=== PATIENT | female | born 1970 | race Caucasian/White ===

== ENCOUNTER 2019-04-10 07:58 | Day surgery (SDC) | payer BC ==
[~2019-04-10] VITALS: Ht 162.6 cm; Wt 90.6 kg
[~2019-04-10 07:58] MED LIST: ADDERALL10 MG PO; INDERAL LA 80MG80 MG PO; PRILOSEC 20MG20 MG PO; SYNTHROID0.075 MG/T PO; ZYRTEC 10MG10 MG PO
[2019-04-10] MEDS ORDERED: PRILOTC PO (08:38)
[2019-04-10] MEDS ORDERED: INDERAL80 MG PO (08:38)
[2019-04-10] MEDS ORDERED: VITAMIN D31000 I1 PO (08:38)
[2019-04-10] MEDS ORDERED: LEVOXYL0.075 MG PO (08:38)
[2019-04-10] MEDS ORDERED: STRATTERA 40MG40 MG PO (08:39)
[2019-04-10 08:50] VITALS: BP 127/87; PULSE 61; TEMP 98
[2019-04-10 10:05] VITALS: BP 115/72; PULSE 72; TEMP 98.5
--- NOTE | 2019-04-10 10:05 | NUR ---
TO [facility] PER CART FROM ENDOSCOPY. ALERT ORIENTED X3, AMBULATED TO RECLINER WITH ASSIST AND TOLERATED WELL. RECEIVED APPLE SAUCE AND COFFEE. DENIES PAIN OR DISCOMFORT
[2019-04-10 10:10] VITALS: TEMP 98.1
--- NOTE | 2019-04-10 10:10 | NUR ---
DR DAVID INTO TALK WITH PATIENT AND HER .
[2019-04-10 10:20] VITALS: BP 104/67; PULSE 77
--- NOTE | 2019-04-10 10:20 | NUR ---
ATE 100% AND TOLERATED WELL.
--- NOTE | 2019-04-10 10:36 | NUR ---
RECEIVED DISCHARGE INSTRUCTIONS AND VERBALIZED UNDERSTANDING. DISCONTINUED IV AND INT- CATHETER INTACT PATIENT GETTING DRESSED AND GETTING THE CAR.
--- NOTE | 2019-04-10 10:45 | NUR ---
DISCHARGED PER WC BY NURSING STAFF TO PRIVATE CAR IN CARE OF -
== END 2019-04-10 10:55 | disposition home or self-care (01) ==
LOC: SDCO 07:58
DX: Z12.11 Encounter for screening for malignant neoplasm of colon (principal); D64.9 Anemia, unspecified; Z88.5 Allergy status to narcotic agent; Z90.710 Acquired absence of both cervix and uterus
CPT/HCPCS: J2250; J2704; J3010; J7030

== ENCOUNTER 2021-08-04 10:43 | Day surgery (SDC) | payer BC ==
[~2021-08-04] VITALS: Ht 162.6 cm; Wt 84.5 kg
[~2021-08-04 10:43] MED LIST changes: +INDERAL80 MG PO; +LEVOXYL0.075 MG PO; +PRILOTC PO; +STRATTERA 40MG40 MG PO; +VITAMIN D31000 I1 PO
[2021-08-04 11:55] VITALS: BP 136/73; PULSE 90; TEMP 97.9
[2021-08-04] MEDS ORDERED: ULTRAM 50MG TAB50 MG PO (12:57)
[2021-08-04 14:40] VITALS: BP 132/66; PULSE 73; TEMP 97.9
[2021-08-04 14:55] VITALS: BP 117/65; PULSE 77
[2021-08-04 15:10] VITALS: BP 118/66; PULSE 67
[2021-08-04 15:25] VITALS: BP 135/59; PULSE 62
[2021-08-04 15:30] VITALS: BP 120/58; PULSE 61; TEMP 98.2
--- NOTE | 2021-08-04 16:30 | NUR ---
1440: Patient arrived back into bay 2 from PACU. Report recieved from SHANIKA Sun. Patient alert and awake. and mom at bedside. Vitally stable. Call light within reach. 1455: Patient vitally stable. Requesting sprite and orange jello. No complaint of pain or nausea at this time. Resting in cart talking with family members. 1510: Patient vitally stable. Tolerated food and drink well. 1525: Patient vitally stable. Up to restroom independently. Able to void successfully. Patient got dressed independently. States she is having some pain with movement. PRN ibuprofen given per JUL. 1545: Went through discharge instructions with patient and family. Questions answered. Patient then escorted to patient entrance via wheelchair. Patient got into personal vehicle unassisted and left in the care of her family.
== END 2021-08-04 16:00 | disposition home or self-care (01) ==
LOC: SDCO 10:43
DX: K80.10 Calculus of gallbladder with chronic cholecystitis without obstruction (principal); E11.9 Type 2 diabetes mellitus without complications; R01.1 Cardiac murmur, unspecified; K21.9 Gastro-esophageal reflux disease without esophagitis; Z79.899 Other long term (current) drug therapy; Z79.84 Long term (current) use of oral hypoglycemic drugs
CPT/HCPCS: J0690; J1100; J1885; J2250; J2370; J2405; J2704; J3010; J7120

== ENCOUNTER 2023-12-27 18:24 | Emergency (ER) | payer BC ==
[~2023-12-27] VITALS: Ht 160 cm; Wt 54.5 kg
[~2023-12-27 18:24] MED LIST changes: +ULTRAM 50MG TAB50 MG PO
[2023-12-27 18:35] VITALS: TEMP 98.4
[2023-12-27 21:50] VITALS: BP 128/84; PULSE 64
== END 2023-12-27 21:50 | disposition short-term general hospital (02) ==
LOC: COL.ER 18:24
DX: M54.50 Low back pain, unspecified (principal); R20.2 Paresthesia of skin; R20.0 Anesthesia of skin; R32 Unspecified urinary incontinence